=== PATIENT | male | born 1965 | race African-American/Black ===

== ENCOUNTER 2017-03-09 04:30 | Emergency (ER) | payer SELFPAY ==
[~2017-03-09] VITALS: Ht 177.8 cm; Wt 68.0 kg
[2017-03-09] MEDS ORDERED: MORPHINE SULFATE 4 MG/ML CPJ (NOT FOR IM USE) IV ONE ×2 (05:31→06:45)
[2017-03-09] MEDS ORDERED: ONDANSETRON HCL 4MG/5ML ORAL SOLN ONE (05:32)
[2017-03-09] MEDS ORDERED: ONDANSETRON HCL 4MG/2ML VIAL ONE (05:32)
[2017-03-09] MEDS ORDERED: DIATR MEGLU/DIATRIZOATE SOLN 120ML ONE (06:00)
[2017-03-09] MEDS ORDERED: SODIUM CHLORIDE 0.9% 10ML VIAL ONE (06:00)
[2017-03-09] MEDS ORDERED: IOHEXOL-300 100 ML BOTTLE ONE (06:00)
[2017-03-09 06:35] LABS: PARTIAL THROMBOPLASTIN TIME 23.6 sec (24.0-34.0); PROTHROMBIN TIME 10.9 sec
[2017-03-09] MEDS ORDERED: METRONIDAZOLE 500 MG PREMIX 100 ML IV NR (06:35)
[2017-03-09] MEDS ORDERED: CEFTRIAXONE 1 G PREMIX 50 ML IV NR (06:36)
[2017-03-09 06:43] LABS: CARBON DIOXIDE 27 mEq/L (21-32); CHLORIDE 100 mEq/L (98-107); TROPONIN I < 0.02 ng/mL (0.00-0.04)
[2017-03-09] MEDS ORDERED: ONDANSETRON HCL 4MG/2ML VIAL IV ONE (06:45)
[2017-03-09 06:46] LABS: HEMATOCRIT. 40.3 % (42.0-52.0); HEMOGLOBIN. 13.9 g/dL (14.0-18.0); MEAN CORPUSCULAR HEMOGLOBIN 33.1 pg (28.0-32.0); MEAN CORPUSCULAR VOLUME 96.4 fL (80.0-94.0); MEAN PLATELET VOLUME 7.3 fl (7.4-10.4); PLATELET 461 x1000/uL (130-400); RED BLOOD CELL COUNT 4.19 mill/uL (4.7-6.1)
[2017-03-09 07:01] LABS: CLARITY URINE CLEAR (CLEAR); COLOR URINE YELLOW (YELLOW); GLUCOSE URINE NEGATIVE (NEGATIVE); KETONES URINE TRACE (NEGATIVE); LEUKOCYTE ESTERASE URINE NEGATIVE (NEGATIVE); NITRITE URINE NEGATIVE (NEGATIVE); OCCULT BLOOD URINE NEGATIVE (NEGATIVE); PH URINE >=9.0 (4.5-8.0); PROTEIN URINE 2+ (NEGATIVE); SPECIFIC GRAVITY URINE 1.044 (1.005-1.030)
[2017-03-09] MEDS ORDERED: PIPERACILLIN/TAZ 3.375G PREMIX 50 ML IV ONE (07:15)
[2017-03-09 07:37] LABS: PLATELET ESTIMATE INCREASED
[2017-03-09 09:31] VITALS: BP 120/83
== END 2017-03-09 09:58 | disposition short-term general hospital (02) ==
LOC: ER 04:30 → EDBEDREQ 06:19 → EDBEDREQSVC 06:21 → CANRESERV 06:42 → ENRESERV 06:42 → CANBEDREQ 09:03 → ER 09:58
DX: K22.3 Perforation of esophagus (principal); R10.84 Generalized abdominal pain
CPT/HCPCS: 36415; 71010; 71250; 74177; 80053; 81001; 83605; 83690; 83880; 84484; 85025; 85610; 85730; 86850; 86900; 86901; 87040; 87086; 93005; 96365; 96367; 96375; 99291; A4216; J0696; J2270; J2405; J2543; J3490; Q9967; Q0162; Q9963